=== PATIENT | male | born 1960 | race African-American/Black ===

== ENCOUNTER → 2017-01-03 09:48 | Emergency (ER) | payer OTHER ==
[~2017-01-03 09:48] MED LIST: NS 0.9% 1000 ML* 1,000 ML IV SCH
[2017-01-03 10:20] LABS: Comments Flag Yes; Hematocrit 40 % (42-52); Hemoglobin 12.6 g/dl (14.0-18.0); Mean Corpuscular HGB Conc 32 g/dl (31-36); Mean Corpuscular Hemoglobin 23 pg (27-31); Mean Corpuscular Volume 73 fL (80-94); Mean Platelet Volume 7 um3 (7.4-10.4); Red Blood Count 5.41 10^6/ul (4.0-5.4); Red Cell Distribution Width 15 % (10.5-15); White Blood Count 5.4 10^3/ul (3.5-10.8)
--- NOTE | 2017-01-03 10:20 | RAD ---
INDICATION: Diminished breath sounds COMPARISON: Chest x-ray December 12, 2012 TECHNIQUE: An AP portable view obtained at 1000 hours is submitted. FINDINGS: Bones/Soft Tissues: There are no acute bony findings. Cardiomediastinal: The cardiomediastinal silhouette is normal. Lungs: There are no infiltrates. There is no pneumothorax Pleura: There are no pleural effusions. Other: None IMPRESSION: NO ACTIVE DISEASE
[2017-01-03 10:21] LABS: Add Diff/Slide Review? Slide Review Added
[2017-01-03 10:28] LABS: ALT 29 U/L (7-52); AST 25 U/L (13-39); Albumin 4.1 g/dL (3.2-5.2); Alkaline Phosphatase 63 U/L (34-104); Anion Gap 6 mmol/L (2-11); BUN/Creatinine Ratio 14.5 (8-20); Blood Urea Nitrogen 16 mg/dL (6-24); CO2 Carbon Dioxide 25 mmol/L (22-32); Calcium 9.7 mg/dL (8.6-10.3); Chloride 103 mmol/L (101-111); Creatine Kinase 158 U/L (10-223); EGFR African American 89.7 (>60); EGFR Non-African American 69.8 (>60); Globulin 3.6 g/dL (2-4); Glucose 109 mg/dL (70-100); Potassium 3.6 mmol/L (3.5-5.0); Sodium 134 mmol/L (133-145); Total Protein 7.7 g/dL (6.4-8.9)
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
[2017-01-03 10:53] LABS: Alcohol < 10 mg/dL (<10)
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
[2017-01-03 12:35] LABS: Urine Bilirubin Negative (Negative); Urine Glucose Negative (Negative); Urine Nitrite Negative (Negative)
[2017-01-03 12:56] LABS: Benzodiazepine Urine Screen None Detected (None Detect)
[2017-01-03 13:41] VITALS: BP 147/101
== END | disposition short-term general hospital (02) ==
LOC: ED 09:48
DX: S02.81XA Fracture of other specified skull and facial bones, right side, initial encounter for closed fracture (principal); S02.2XXA Fracture of nasal bones, initial encounter for closed fracture; Y09 Assault by unspecified means; Y93.89 Activity, other specified; Y92.149 Unspecified place in prison as the place of occurrence of the external cause
CPT/HCPCS: 36415; 70450; 70486; 71010; 72125; 80053; 80307; 80320; 81003; 82550; 83605; 84484; 85025; 87040; 93005; 99284; G0480